=== PATIENT | female | born 1945 | race Caucasian/White ===

== ENCOUNTER 2018-01-22 15:07 | Inpatient (IN) | payer MEDICARE ==
[~2018-01-22] VITALS: Ht 160 cm; Wt 105.8 kg
[2018-01-22] VITALS (27 sets, daily range): BP systolic 124–214; BP diastolic 52–93
--- NOTE | 2018-01-22 14:45 | NUR ---
Patient wheeled into the unit by wheelchair by Dr. Purvis himself, direct admit from his office. Admission order paper received from Dr. Purvis's nurse and fax the admission paper to ER admitting. Patient ambulated from wheelchair to bed, place bedside monitor leads, help change to hospital gown, patient stated that she just fell 2 or 3 weeks ago because her bone is weak. Place red socks on patient's feet, high fall risk sign place on the patients's door. Place patient on 2L NC per Dr. Purvis's order since patient is short of breath. Patient stated that she use 3L of oxygen at home. Instructed patient to use the call light at all times and never to get out of bed by herself. Side rails up x2, bed in low lock position.
--- NOTE | 2018-01-22 15:00 | NUR ---
IV started on L upper arm G 22.
[2018-01-22] MEDS: NITROGLYCERIN 25MG/D5W 250ML 250 ML IV SCH (15:28)
--- NOTE | 2018-01-22 15:28 | NUR ---
Nitro drip started at 20 cc/hr
--- NOTE | 2018-01-22 15:29 | NUR ---
Lasix 40 mg IV OT given.
[2018-01-22] MEDS ORDERED: LASIX IV ONE (15:30)
[2018-01-22 15:35] LABS: ABG PCO2 43.8 mmHg (35.0-45.0); ABG PH 7.405 (7.350-7.450); BE(B) 1.8 mmol/L (-2.0-2.0); HCO3act 26.8 mmol/L (22.0-26.0); pO2 62.5 mmHg (75.0-100.0)
[2018-01-22 15:45] LABS: BASOPHIL % 0.4 % (0.0-0.2); EOSINOPHIL # 0.1 10^3/uL (0.0-0.2); EOSINOPHIL % 1.1 % (0.0-5.0); HEMOGLOBIN 12.1 g/dL (12.0-15.0); LYMPHOCYTES % 33.1 % (24.0-44.0); MEAN CELL HGB 27.7 pg (26-34); MEAN CORP VOLUME 86.5 fL (78-100); MEAN PLATELET VOLUME 10.8 fL (7.8-11.0); MONOCYTES # 0.9 10^3/uL (0.3-0.8); MONOCYTES % 9.9 % (5.0-12.0); NEUTROPHILS % 55.3 % (41.0-85.0); RED CELL DISTRIBUTION WIDTH 18.7 % (11.5-14.5); WHITE BLOOD CELL 9.1 10^3/uL (4.5-11.0)
--- NOTE | 2018-01-22 15:45 | NUR ---
RT Laurent at bedside for EKG.
--- NOTE | 2018-01-22 15:47 | DIREP ---
PROCEDURE:CHEST 2 VIEWS COMPARISON:[facility], CR, XRAY CHEST 2 VWS, 03/31/2015, 03:59 PM. INDICATIONS:Chf FINDINGS: LUNGS/PLEURA:The lungs are well-expanded and clear. No pneumonia is seen. No heart failure or effusions identified. VASCULATURE:Normal. Unremarkable pulmonary vasculature. CARDIAC:Normal. No cardiac silhouette abnormality or cardiomegaly. Midline sternotomy noted. EKG leads identified. MEDIASTINUM:Normal. No visible mass or adenopathy. BONES:Normal. No fracture or visible bony lesion. Cervical spine fusion noted. DJD in the spine. OTHER:Negative. CONCLUSION:No CHF is seen. No active disease. Dictated by: Karlos Nguyen MD on 01/22/2018 at 02:44 PM
--- NOTE | 2018-01-22 16:00 | NUR ---
MOBILITY Patient ambulated from bed to bedside commode, 400 ml of yellow urine out.
[2018-01-22 16:16] LABS: CALCIUM 9.2 mg/dL (8.4-10.5)
--- NOTE | 2018-01-22 17:00 | NUR ---
MOBILITY Patient ambulated from bed to bedside commode, 450 ml of yellow urine out.
--- NOTE | 2018-01-22 17:15 | NUR ---
Dr. Purvis at bedside. Assess the patient and discuss plan of care. Keep titrating with the Nitro until blood pressure goes down.
--- NOTE | 2018-01-22 17:17 | PCM.EKG ---
[facility] Test Date: 2018-01-22 Test Time: 15:52:53 Pat Name: ALEXEI GREER Department: Room: ICU3 A Gender: F Winter Sports Manager: SPENCER : 1945 Requested By: LATOSHA YANG Order Number: [id number] Reading MD: Latosha Yang Measurements Intervals [place] Rate: 77 P: 57 FL: 156 QRS: 0 QRSD: 94 T: 65 QT: 420 QTc: 475 Interpretive Statements Sinus rhythm with occasional premature ventricular complexes Otherwise normal ECG No previous ECG available for comparison Electronically Signed On 01-29-2018 11:15:37 CDT by Latosha Yang Please click the below link to view image of tracing.
--- NOTE | 2018-01-22 17:30 | NUR ---
Dinner tray served, patient consumed 80% of her dinner plate.
[2018-01-22] MEDS ORDERED: NORVASC ONE (18:08)
[2018-01-22] MEDS ORDERED: COZAAR ONE (18:08)
[2018-01-22] MEDS: COZAAR PO SCH (18:10)
--- NOTE | 2018-01-22 18:25 | NUR ---
Patient complained of splitting headache from the Nitro drip.
--- NOTE | 2018-01-22 18:27 | NUR ---
Notified Dr. Purvis that patient complain of headache. New order received. Tylenol 1 gram Q4H for headache.
--- NOTE | 2018-01-22 18:41 | NUR ---
Tylenol 1 gram given for patient's headache
[2018-01-22] MEDS ORDERED: TYLENOL PO PRN (19:00)
--- NOTE | 2018-01-22 19:00 | NUR ---
RCVD REPORT AND ASSUMED CARE OF PT. PT IS AWAKE AND ALERT, OX3. DENIES C/O CP OR SHORTNESS OF BREATH NTG GTT INFUSING AT 43 MCG/MIN. C/O AMES BUT STATES IT IS BETTER SINCE RCVG TYLENOL. ASSISTED PT UP TO TOILET, VOIDING CLEAR YELLOW URINE. BACK TO BED. CB IN REACH. FAMILY AT BEDSIDE.
--- NOTE | 2018-01-22 19:00 | NUR ---
Bedside report given to incoming shift nurses and relinquished care.
--- NOTE | 2018-01-22 20:30 | NUR ---
INCREASED NTG GTT TO 50MCG/MIN WITH GOAL TO KEEP [id number]. CURRENTLY DENIES C/O
[2018-01-22] MEDS: PULMICORT IH SCH (21:00)
[2018-01-22] MEDS ORDERED: SOLU-MEDROL IV SCH (21:00)
[2018-01-22] MEDS: XOPENEX IH SCH (21:00)
[2018-01-22] MEDS: LIPITOR PO SCH (21:32)
[2018-01-22] MEDS: COREG PO SCH (21:33)
[2018-01-22] MEDS: ATIVAN PO SCH (21:33)
[2018-01-22] MEDS: REQUIP PO SCH (22:54)
[2018-01-22] MEDS ORDERED: ULTRAM PO PRN (23:00)
--- NOTE | 2018-01-22 23:30 | NUR ---
PAIN: PT C/O RESTLESS LEG PAIN AND HEADACHE. PT ASKING TO CONTINUE HER HOME MED OF REQUIP. FORKLIFT PICKER INFORMED DR YANG. AND ORDERS RCVD. PT GIVEN REQUIP AND ULTRAM FOR COMFORT.
[2018-01-23] VITALS (25 sets, daily range): BP systolic 111–195; BP diastolic 49–103
--- NOTE | 2018-01-23 00:20 | NUR ---
NTG GTT: DECREASED GTT TO 40MCG/MIN TO MAINTAIN MAP 70-100.
[2018-01-23] MEDS: NITROGLYCERIN 25MG/D5W 250ML 250 ML IV SCH (01:39)
--- NOTE | 2018-01-23 02:36 | NUR ---
URINE OUTPUT: PT ASSISTED TOBSC, VOIDED 400 ML CLEAR YELLOW URINE. CURRENTLY DENIES PAIN. BACK TO BED WITH SBA. CONT TO MONITOR.
[2018-01-23] MEDS ORDERED: ATOR20TA PO (03:33)
[2018-01-23] MEDS ORDERED: LEVO200T5 PO (03:46)
[2018-01-23] MEDS ORDERED: TIZA4TAB PO (03:46)
[2018-01-23] MEDS ORDERED: ROPI1TAB PO (03:46)
[2018-01-23] MEDS ORDERED: AMLO10TA2 PO (03:46)
[2018-01-23] MEDS ORDERED: PARO40TA3 PO (03:46)
--- NOTE | 2018-01-23 04:25 | PCM.EKG ---
[facility] Test Date: 2018-01-23 Test Time: 04:29:35 Pat Name: ALEXEI GREER Department: Room: ICU3 A Gender: F Wet Process Miller Head Assistant: SAMSON : 1945 Requested By: SURY YANG Order Number: [id number] Reading MD: Sury Yang Measurements Intervals [place] Rate: 63 P: 64 HI: 188 QRS: -2 QRSD: 110 T: 111 QT: 490 QTc: 501 Interpretive Statements Normal sinus rhythm Septal infarct, age undetermined Abnormal ECG No previous ECG available for comparison lvh by voltage Electronically Signed On 01-29-2018 11:15:54 CDT by Sury Yang Please click the below link to view image of tracing.
--- NOTE | 2018-01-23 04:45 | NUR ---
EKG CHANGES: PT NOTED TO BE HAVING PAUSES ON EKG, 12 LEAD OBTAINED. EKG AND STRIPS SENT TO DR YANG. NO NEW ORDERS HAVE BEEN RECIEVED. NTG GTT DOWN TO 30 MCG/MIN. PT AWAKENS EASILY, ALERT, OX3. DENIES CP, SOB, OR OTHER C/O. ASSISTED PT IN REPOSITIONING IN BED. WILL CONT TO MONITOR.
--- NOTE | 2018-01-23 07:00 | NUR ---
RECEIVED REPORT AND PATIENT CARE ASSUMED.
--- NOTE | 2018-01-23 08:00 | NUR ---
ASSESSMENT/ACTIVITY LEVEL A PATIENT DENIES ANY CP OR SOB. HOB ELEVATED 30 DEGREES. O2 ON AT 2L/MIN VIA NASAL CANULA. BREATH SOUND CLEAR BILATERALLY. PATIENT ABLE TO TURN SELF IN BED AND GET SELF OUT OF BED. NO EDEMA NOTED. SEE EMR.
[2018-01-23] MEDS: XOPENEX IH SCH ×3 (08:05→20:25)
[2018-01-23] MEDS: PULMICORT IH SCH ×2 (08:05→20:25)
--- NOTE | 2018-01-23 08:30 | NUR ---
MOBILITY PATIENT SAT ON SIDE OF BED FOR BREAKFAST NOT DISTRESS NOTED.
[2018-01-23] MEDS ORDERED: NORVASC PO SCH (09:00)
[2018-01-23] MEDS ORDERED: SOLU-MEDROL ONE (09:20)
[2018-01-23] MEDS: KLOR-CON 10 PO SCH (09:26)
[2018-01-23] MEDS: REQUIP PO SCH ×3 (09:26→21:16)
[2018-01-23] MEDS: COZAAR PO SCH (09:26)
[2018-01-23] MEDS: COREG PO SCH ×2 (09:26→21:15)
[2018-01-23] MEDS: ATIVAN PO SCH ×2 (09:26→21:15)
[2018-01-23] MEDS: PROTONIX PO SCH (09:26)
[2018-01-23] MEDS: SYNTHROID PO SCH (09:30)
[2018-01-23] MEDS ORDERED: ZANAFLEX PO PRN (09:30)
[2018-01-23] MEDS: NORVASC PO SCH (09:32)
[2018-01-23] MEDS: PAXIL PO SCH (09:32)
--- NOTE | 2018-01-23 09:32 | NUR ---
NITRO STOPPED PER DR. CELIA ZALDIVAR.
--- NOTE | 2018-01-23 09:40 | NUR ---
DR. YANG AT BEDSIDE ASSESSING PATIENT AND DISCUSSING PLAN OF CARE.
--- NOTE | 2018-01-23 12:35 | NUR ---
LUNCH/MOBILITY PATIENT UP TO SIDE OF BED FOR LUNCH. FAMILY AT BEDSIDE. NO DISTRESS NOTED, CALL LIGHT WITHIN EASY REACH.
[2018-01-23] MEDS ORDERED: APRESOLINE ONE (12:37)
[2018-01-23] MEDS: APRESOLINE PO SCH ×2 (12:50→21:14)
--- NOTE | 2018-01-23 12:50 | NUR ---
BP 170/95 DR. YANG NOTIFIED VERBAL ORDER RECEIVED TO GIVE HYDRALAZINE 25MG PO TWICE A DAY. FIRST DOSE NOW. RBAV. SEE EMAR.
--- NOTE | 2018-01-23 15:30 | NUR ---
REQUIP PATIENT TOOK HER OWN REQUIP OUT OF HER PURSE. RT REPORT TO NURSE. PATIENT STATED "DR. DONOVAN TOLD ME I COULD TAKE ONE WHENEVER IM HURTING." DR. YANG NOTIFIED OF SITUATION. PATIENT INSTRUCTED TO NOT TAKE HER HOME MEDICATIONS SINCE WE ARE DISPENSING THEM AND WILL END UP DOUBLE DOSING. NO NEW ORDER AT THIS TIME.
--- NOTE | 2018-01-23 15:30 | NUR ---
DISCHARGE PLAN CM VISITED WITH PATIENT AND CONCERNING PATIENTS DISCHARGE PLAN AND NEED. PATIENT STATED SHE LIVES @ HOME WITH HER AND THEY JUST RECENTLY MOVED INTO [place] FROM [place]. PATIENT HAS ALL DME IN PLACE INCLUDING; A WALKER WITH WHEELS, A CANE AND A SHOWER CHAIR. PATIENT ALSO HAS HOME O2 IN PLACE THAT SHE USES CONTINUES @ 3L/MIN SERVICED THREW [facility]. PATIENT VOICED CONCERN THAT DURING THEIR MOVE, SHE BROUGHT HER PORTABLE O2 TANKS INTO [facility] BUT HAS BEEN UNABLE TO PICK THEM UP. CM REACHED OUT TO [facility] REGARDING PATIENTS CONCERN REGARDING HER O2 TANKS. CM SPOKE TO THEIR RESPIRATORY DEPARTMENT WHO STATED THEY WOULD NOTIFY DEPARTMENT BACK AFTER RESEARCHING PATIENTS MORE REGARDING HER PORTABLE TANKS. CM THEN EDUCATED PATIENT AND REGARDING HOME HEALTH SERVICES AND BENEFITS DUE TO HOSPITAL ADMISSION. PATIENT STATED SHE WAS RECENTLY ON [facility]S SERVICES BUT WANTED TO CHANGE HOME HEALTH PROVIDERS. CHOICE LETTER PRESENTED, SIGNED AND PLACED INTO PATIENTS CHART. CM THEN FAXED PATIENTS CLINICAL INFORMATION TO [facility]. CM THEN NOTIFIED [facility] AND SPOKE TO ABISAI SAAVEDRA RN REGARDING HH REFERRAL. ABISAI STATED [facility] WILL FOLLOW UP WITH PATIENT UPON DISCHARGE. CURRENT GOAL FOR PATIENT IS TO DISCHARGE BACK HOME TO ROUTINE CARE WITH [facility]. CONTACT INFORMATION PROVIDE TO PATIENT AND CM WILL CONTINUE TO FOLLOW.
--- NOTE | 2018-01-23 16:40 | NUR ---
AMBULATION PATIENT UP AMBULATING UNIT WITH SPOUSE. PATIENT ON PORTABLE O2 AT 3L/MIN. NO DISTRESS NOTED.
--- NOTE | 2018-01-23 20:59 | HPH ---
ADMIT DATE: 01/22/2018 CHIEF COMPLAINT: Chest heaviness, tightness and high blood pressure. HISTORY OF PRESENT ILLNESS: The patient is a 72-year-old white female with known history of atherosclerotic heart disease and coronary artery bypass surgery in 2013 following myocardial infarction and has hypertension, hypertensive heart disease and oxygen-dependent COPD and she moved from [place] and ____ was her physician and she came with history of chest heaviness, tightness, jaw pain with EKG showing left ventricular hypertrophy, diffuse ST-T wave changes and echo confirming multi-segmental wall motion abnormalities with 23% ejection fraction and blood pressure was like 210/110, was admitted with diagnosis of unstable angina, uncontrolled hypertension, acute on chronic systolic heart failure for further evaluation and management. ALLERGIES: None known. MEDICATIONS: She has been on Zanaflex 4 mg twice a day, Lipitor 20 mg once a day, Paxil 40 mg once a day, Levothroid 200 mcg once a day, Requip 2 mg twice a day, amlodipine 10 mg once a day. PAST MEDICAL HISTORY: Includes history of CAD, post-bypass status, COPD. She also has a nonrheumatic aortic valve stenosis, mild to moderate degree and morbid obesity, bilateral carotid bruits probably conducted murmur from the carotids cannot be fully ruled out and she is oxygen dependent. SOCIAL HISTORY: Heavy smoker, has almost 17-kgft-encl history of smoking, claims that she is smoking half a pack a day, but actually _she is smoking more than that. No history of any ethanol abuse. FAMILY HISTORY: Positive for heart problem. Father had heart trouble with CHF. Sister had a stroke. PAST SURGICAL HISTORY: Bypass surgery, colonoscopy, gallbladder surgery, hysterectomy, knee surgery, back surgery, stomach operation in the past. PHYSICAL EXAMINATION: GENERAL: She was having a lot of chest heaviness, tightness and shortness of breath, 237 pounds and 5 feet 3 inches, BMI of 42. VITAL SIGNS: Blood pressure 210/110, saturation 88% on room air, respirations 18, pulse was about 60. HEENT: Unremarkable. NECK: Short neck. JVD was discernible up to the angle of jaw. Bilateral carotid bruits upstroke was normal. CHEST: Thick chest wall. LUNGS: Poor air entry, scattered rhonchi, rales bilaterally. HEART: Sounds S1, S2 normal. Systolic ejection murmur grade 2/6 heard at the left sternal border and aortic one area, probably related to aortic stenosis versus aortic sclerosis. ABDOMEN: Rounded, but obese. No organomegaly. Bowel sounds present. EXTREMITIES: Mild dependent edema. NEUROLOGIC: Intact. IMAGING STUDIES: EKG: Regular sinus rhythm, left ventricular hypertrophy, QS pattern in V1, V2, rule out anteroseptal NM, nonspecific ST-T wave changes. IMPRESSION: Unstable angina, uncontrolled hypertension, ischemic cardiomyopathy, multi-segmental wall motion abnormality, chronic systolic heart failure, moderate aortic stenosis. Aortic valve area of 0.9 square cm with 3 meters velocity across the aortic valve, COPD, oxygen dependent, carotid bruit versus a conducted murmur, obesity. PLAN: At this time, admit the patient, was started on IV nitro. EKG, enzymes, control blood pressure and optimize medical therapy. Further management will depend on the clinical course. Laxmichand MD Yaniv DR: LANA/igor JOB# [id number]
[2018-01-23] MEDS: RANEXA PO SCH (21:14)
[2018-01-23] MEDS: LIPITOR PO SCH (21:14)
[2018-01-24] VITALS (21 sets, daily range): BP systolic 115–183; BP diastolic 45–98
[2018-01-24] MEDS: SYNTHROID PO SCH (05:18)
[2018-01-24] MEDS: REQUIP PO SCH ×2 (06:54→08:50)
--- NOTE | 2018-01-24 07:00 | NUR ---
RECEIVE REPORT AND PATIENT CARE ASSUMED. PATIENT RESTING QUIETLY IN BED, LAYING ON HER LEFT SIDE. CALL LIGHT WITHIN EASY REACH.
[2018-01-24] MEDS: XOPENEX IH SCH (08:13)
[2018-01-24] MEDS: PULMICORT IH SCH (08:13)
[2018-01-24] MEDS: PAXIL PO SCH (08:50)
[2018-01-24] MEDS: PROTONIX PO SCH (08:50)
[2018-01-24] MEDS ORDERED: NORVASC PO SCH (09:00)
[2018-01-24] MEDS ORDERED: ALDACTONE PO SCH (09:00)
[2018-01-24] MEDS: NORVASC PO SCH (09:29)
[2018-01-24] MEDS: ATIVAN PO SCH (09:30)
[2018-01-24] MEDS: COZAAR PO SCH (09:30)
[2018-01-24] MEDS: COREG PO SCH (09:30)
[2018-01-24] MEDS: KLOR-CON 10 PO SCH (09:31)
[2018-01-24] MEDS: RANEXA PO SCH (09:31)
[2018-01-24] MEDS: APRESOLINE PO SCH (09:31)
--- NOTE | 2018-01-24 09:45 | NUR ---
UPDATE HOME O2/REQUALIFY [facility] NOTIFIED CM DEPARTMENT AND STATED THAT PATIENT HAS BEEN PRIVATE PAYING FOR HER PORTABLE TANKS. PATIENT OWNS HER CONCENTRATE SO IN ORDER FOR HER INSURANCE TO PAY AND FOR [facility] TO BE ABLE TO ASSIST HER, SHE WOULD NEED TO BE REQUAILIFED FOR HOME O2. PATIENT IS CURRENTLY IN ICU AND NEEDS TO BE ON THE MEDICAL SURGICAL UNIT FOR APPROPRIATE O2 TESTING. CM WILL CONTINUE TO FOLLOW.
[2018-01-24] MEDS ORDERED: ASPI-655 PO (10:06)
[2018-01-24] MEDS ORDERED: RANO500T2 PO (10:06)
[2018-01-24] MEDS ORDERED: SPIR25TA PO (10:06)
[2018-01-24] MEDS ORDERED: POTA10TA6 PO (10:06)
[2018-01-24] MEDS ORDERED: CARV6.252 PO (10:06)
[2018-01-24] MEDS ORDERED: HYDR-3194 PO (10:06)
[2018-01-24] MEDS ORDERED: ATOR40TA PO (10:06)
[2018-01-24] MEDS ORDERED: PANT40TA3 PO (10:06)
[2018-01-24] MEDS ORDERED: MOME13HF2 IH (10:06)
[2018-01-24] MEDS ORDERED: LOSA100T2 PO (10:06)
[2018-01-24] MEDS ORDERED: LEXISCAN IV ONE (10:30)
--- NOTE | 2018-01-24 10:30 | NUR ---
AMBULATION PATIENT AMBULATED IN ROOM AROUND BED AND ON TO BSC. NO DISTRESS NOTED. PATIENT LEFT SITTINGIN CHAIR AT BEDSIDE. CALL LIGHT WITHIN EASY REACH.
--- NOTE | 2018-01-24 12:10 | NUR ---
BACK FROM [facility] NO DISTRESS NOTED. PATIENT SITTING ON SIDE OF BED DRINK COFFEE. CALL LIGHT WITHIN EASY REACH. PATIENT STATED "IM READY TO GO HOME. THE DOCTOR SAID I COULD GO HOME AFTER THE STRESS TEST." DR. YANG NOTIFIED.
--- NOTE | 2018-01-24 12:30 | NUR ---
HOME O2 UPDATE Julito RODRIGUEZ RN ICU NOTIFIED CM DEPARTMENT AND STATED THAT PATIENT WAS VERY PRESIDENT ABOUT DISCHARGING HOME AND DR. YANG HAS ALREADY WROTE THE DISCHARGE ORDER. CM MADE A FOLLOW UP VISIT TO PATIENT REGARDING HER HOME O2 PORTABLE TANK BARRIER. DUE TO PATIENT BEING IN ICU HER INSURANCE DOES NOT CONSIDER THAT A STABLE STATE, HE WOULD HAVE TO BE ON A MED SURG UNIT. PATIENT STATED SHE UNDERSTANDS THAT BUT SHE IS STILL GOING HOME. SHE STATED "I HAVE A GARAGE SALE TO GET READY FOR, I WILL USE MY CONCENTRATOR AND I HAVE ONE PORTABLE TANK". CM THEN PROVIDED HER WITH [facility]'S CONTACT INFORMATION INCASE SHE NEEDED PORTABLE TANKS SHE COULD PRIVATE PAY UNTIL HER PCP DR. YANG COULD REQUALIFY HER FOR HOME O2 PORTABILITY. PATIENTS DISCHARGE INSTRUCTIONS UPDATED TO REFLECT. NO FURTHER CM OR DISCHARGE NEEDS KNOWN @ THIS TIME.
--- NOTE | 2018-01-24 12:30 | NUR ---
AMBULATION PATIENT DRESSED HERSELF IN HER OWN CLOTHES.PATIENT AMBULATED IN UNIT, APPROXIMATELY 50FEET. NO DISTRESS NOTED. PATIENT SITTING ON SIDE OF BED TALKING ON CELL PHONE. CALL LIGHT WITHIN EASY REACH.
--- NOTE | 2018-01-24 13:00 | NUR ---
DISCHARGE PATIENT GIVEN DISCHARGE INSTRUCTION, PATIENT VOICED UNDERSTANDING. NEW PRESCRIPTIONS CALLED INTO [facility]. PATIENT TAKEN DOWN VIA WC ON PORTABLE O2 AT 3L/MIN. NO DISTRESS NOTED. PATIENT DRIVEN HOME IN FRIENDS PRIVATE VEHICLE.
--- NOTE | 2018-01-24 15:00 | NUR ---
[facility] CM FAXED PATIENTS DISCHARGE INSTRUCTIONS TO [facility] . JAKE ALSO NOTIFIED [facility] AND SPOKE TO ARLENE REGARDING PATIENTS DISCHARGE FOR TODAY. ARLENE STATED [facility] WILL FOLLOW UP WITH PATIENT TOMORROW 01/25/18.
--- NOTE | 2018-01-24 15:41 | PNH ---
DATE: 01/23/2018 SUBJECTIVE: The patient is doing much better. Chest pain is improved. Breathing is improved. OBJECTIVE: VITAL SIGNS: Blood pressure under control, pulse 72, respirations 20 and she is on 3 liters nasal cannula, saturation 95%, blood pressure is down to 136/95. NECK: JVD is less discernible, bilateral carotid bruits. LUNGS: Sounds much clear. HEART: Sounds are normal. Complaining of severe headache, was taken off on nitro drip and no DE based on EKG ____ LVH and ST-T wave changes, aortic stenosis murmur. Troponin is 0.02, 0.03. ProBNP is 2737, LDL of 147. Chest x-ray showed no CHF changes. IMPRESSION: Unstable angina; coronary artery disease post bypass surgery; chronic obstructive pulmonary disease, oxygen dependent; hypertension; hypertensive heart disease; uncontrolled hypertension; aortic stenosis with carotid bruit; obesity. PLAN: At this time, we will do a resting myocardial perfusion scan and Lexiscan in the morning and continue optimized medical therapy with amlodipine 10 mg once a day, losartan 100 mg once a day, Coreg 6.25 mg twice a day, Aldactone 12.5 mg once a day along with Ranexa 500 mg twice a day. Add hydralazine 25 mg twice a day for tight control of blood pressure. May require cardiac catheterization, will decide after the perfusion study. Laxmichand MD Yaniv DR: LANA/igor JOB# [id number]
--- NOTE | 2018-01-25 05:33 | STRESS ---
DATE OF SERVICE: LEXISCAN PERFUSION STUDY IDENTIFICATION: A 72-year-old female with history of CAD, post bypass surgery over 2 years ago; old anterior infarct and ischemic cardiomyopathy, congestive heart failure, 23% ejection fraction, uncontrolled hypertension, unstable angina, recently assessed for ischemic substrate, and 233 pounds and 6 feet 3 inches tall. Physical activity is inactive, unable to walk. 12-LEAD EKG: Regular sinus rhythm, left ventricular hypertrophy, diffuse ST-T wave changes. Resting heart rate is 59. MEDICATIONS: Losartan 100 mg once a day, hydralazine 25 mg 3 times a day, Aldactone 12.5 mg once a day, Coreg 6.25 mg twice a day, Ranexa 500 mg twice a day, Lipitor 80 mg once a day, aspirin 81 mg once a day, Dulera 100/5 two puffs daily. The patient received Lexiscan 0.4 mg IV, followed by Cardiolite injection 32.3 mCi. Resting images were obtained on a prior day on 30.5 mCi of Cardiolite injection. Abnormal myocardial perfusion scan with LV cavity dilatation with global hypoperfusion with significant reperfusion of the septum, anterior, inferior and lateral martinez; small anteroapical fixed defect consistent with infarct. LV is dilated with increased end-diastolic volume of 129 mL, global hypokinesis with an ejection fraction of 48%. Suggest heart catheterization and graft angiography. Laxmichand MD Yaniv DR: LANA/igor JOB# [id number]
--- NOTE | 2018-01-25 21:03 | DSH ---
DATE OF DISCHARGE: 01/24/2018 FINAL DIAGNOSES: Unstable angina, coronary artery disease post bypass surgery, ischemic cardiomyopathy, 23% ejection fraction, accelerated hypertension, hypertensive heart disease, chronic diastolic heart failure, chronic systolic heart failure, COPD, obstructive sleep apnea manifestations, oxygen dependent, dyslipidemia, post-bypass status, moderate aortic stenosis, valve area of 0.9 square cm on echo, carotid bruits, assess carotid disease. Please refer to my history and physical to the point of my impression. HOSPITAL COURSE: The patient is a 72-year-old white female who has seen the radiological equipment specialist in [place] and has had bypass surgery by Dr. Acosta over 2 years ago and she came to the office with chest heaviness, tightness with left ventricular hypertrophy, diffuse ST-T wave changes. Echo showing 23-25% ejection fraction with multi-segmental wall motion abnormality and left ventricular hypertrophy and 2+ mitral regurgitation and significant gradient across the aorta around close to a mean gradient of 25-29 mm with 3 meters velocity across the aortic valve with a calculated valve area of 0.9 square cm, and her blood pressure was extremely high around 180/110 and was admitted with diagnosis of unstable angina, uncontrolled hypertension, rule out acute coronary event with systolic heart failure for further evaluation and management and she did not have any acute coronary event and underwent a myocardial perfusion scan on 01/23/2018 and was noted to have a focal anterior fixed defect consistent with a prior infarct and anterior lateral and adjacent apical and inferior hypoperfusion abnormality with reperfusion consistent with a significant multi-segmental ischemic substrate with an ejection fraction, which was much better than which was obtained on echo, it was around 45-50%, although I am not sure about this ejection fraction. Echo was a very good quality, ejection fraction 23%. She was optimized on medical therapy. No ND was documented. She felt good. Overall improved and she will be coming back in the office on Sunday. She wanted to go home on 01/24/2018 and will probably schedule her for cardiac catheterization at some point in time and optimize her medical therapy and discharge medications are aspirin 81 mg once a day, Lipitor 80 mg once a day, high intensity statin, placed because of her post-bypass status on Coreg 6.25 mg twice a day for uncontrolled hypertension, hydralazine 25 mg twice a day, losartan 100 mg once a day, Dulera 100-5 1 puff daily and Protonix 40 mg once a day, potassium 10 mEq once a day, Ranexa 500 mg twice a day, Aldactone 12.5 mg once a day, amlodipine 10 mg once a day, Levothroid 200 mcg once a day and paroxetine 40 mg once a day, Requip 1 mg b.i.d., tizanidine 4 mg b.i.d. on p.r.n. basis for muscle spasms and use oxygen at night for her COPD status and will require a sleep study and rule out underlying obstructive sleep apnea manifestations. We will see her back in the office on Sunday on 01/28/2018 and will decide further therapy. Laxmichand MD Yaniv DR: LANA/igor JOB# [id number]
== END 2018-01-24 13:00 | disposition home health service (06) | DRG 302 ==
LOC: ICU 15:07
PROVIDERS: ADMIT Specialist; ATTEND Specialist
PROC: 4A02XM4 Measurement of Cardiac Total Activity, External Approach (ICD-10-PCS; principal; 2018-01-24)
PROC: 3E033HZ Introduction of Radioactive Substance into Peripheral Vein, Percutaneous Approach (ICD-10-PCS; 2018-01-24)
DX: I25.110 Atherosclerotic heart disease of native coronary artery with unstable angina pectoris (principal); I50.43 Acute on chronic combined systolic (congestive) and diastolic (congestive) heart failure; Z68.41 Body mass index [BMI] 40.0-44.9, adult; I25.5 Ischemic cardiomyopathy; E78.5 Hyperlipidemia, unspecified; J44.9 Chronic obstructive pulmonary disease, unspecified; R09.89 Other specified symptoms and signs involving the circulatory and respiratory systems; G47.33 Obstructive sleep apnea (adult) (pediatric); I08.0 Rheumatic disorders of both mitral and aortic valves; E66.01 Morbid (severe) obesity due to excess calories; I11.0 Hypertensive heart disease with heart failure; F17.210 Nicotine dependence, cigarettes, uncomplicated; I25.2 Old myocardial infarction; Z90.710 Acquired absence of both cervix and uterus; Z95.1 Presence of aortocoronary bypass graft; Z99.81 Dependence on supplemental oxygen; Z79.899 Other long term (current) drug therapy; Z82.3 Family history of stroke; Z82.49 Family history of ischemic heart disease and other diseases of the circulatory system
CPT/HCPCS: 36415; 36600; 71046; 78452; 80053; 80061; 82803; 83880; 84484; 85025; 85610; 85730; 93005; 93017; 94640; A9500; J1940; J2785; J2920; J3480; J3490; J7627